=== PATIENT | female | born 1945 | race Two or more races ===

== ENCOUNTER 2016-09-19 10:00 | Inpatient (IN) | payer MEDICARE, BC ==
[~2016-09-19] VITALS: Ht 160 cm; Wt 67.7 kg
[2016-10-31] VITALS (21 sets, daily range): BP systolic 108–182; BP diastolic 55–91; PULSE 61–96; RESP 13–20; Ht 160 cm; Wt 67.7 kg
[2016-10-31] MEDS ORDERED: BUPIVACAINE LIPOSOME/PF 266 MG/20 ML VIAL INFIL SCH (05:00)
[2016-10-31] MEDS ORDERED: PREGABALIN 300 MG PO X1 PO ONE (05:00)
[2016-10-31] MEDS: LACTATED RINGER'S 1,000 ML IV SCH ×6 (05:00→23:00)
[2016-10-31] MEDS ORDERED: TRANEXAMIC ACID IV ONE (05:00)
[2016-10-31] MEDS ORDERED: CELECOXIB 400 MG PO X1 DOSE PO ONE (05:00)
[2016-10-31] MEDS: PAIN COCKTAIL-CEFUROXIME IRR SCH ×14 (05:00→09:26)
[2016-10-31] MEDS ORDERED: SOD CHLORIDE 0.9% IV ONE (05:00)
[2016-10-31] MEDS ORDERED: EXPAREL NOTE (BUPIVICAINE LIPOSOMAL) XX SCH (05:00)
[2016-10-31] MEDS ORDERED: traMADOL 50 MG TAB X 1 DOSE PO ONE (05:00)
[2016-10-31] MEDS ORDERED: CEFAZOLIN 2GM/50 ML (PMX) 50 ML X1 BEFORE INCISION IVPB ONE (05:00)
[2016-10-31] MEDS ORDERED: TRANEXAMIC ACID 670 MG in SOD CHLORIDE 0.9% 100 ML IVPB SCH (05:00)
[2016-10-31] MEDS ORDERED: oxyCODONE (CR) 10 MG TAB [oxyCONTIN] X1 DOSE PO ONE (05:00)
[2016-10-31] MEDS ORDERED: SODIUM CL BACTERIOSTATIC 30 ML INJ ONE (06:53)
[2016-10-31] MEDS ORDERED: VANCOMYCIN 1 GM INJ ONE (06:53)
[2016-10-31] MEDS ORDERED: POLYMYXIN B 500000 UNIT INJ ONE (06:53)
[2016-10-31] MEDS ORDERED: ETOMIDATE 20 MG INJ ONE (07:00)
[2016-10-31] MEDS ORDERED: PROPOFOL 100 ML ONE (07:12)
[2016-10-31] MEDS ORDERED: ROCURONIUM 50 MG INJ ONE (07:12)
[2016-10-31] MEDS ORDERED: LIDOCAINE 2% (SDV) 5 ML INJ ONE (07:12)
--- NOTE | 2016-10-31 07:14 | HPN ---
Date/Time of Note Date/Time of Note DATE: 10/31/16 TIME: 07:13 Interval H&P Admission Note Pt. seen H&P reviewed: No system changes No change from H&P by Dr. Pedro Brenner on 10/22/16 RANDAL HAMM MD Oct 31, 2016 07:14
[2016-10-31] MEDS ORDERED: SUCCINYLCHOLINE CHLORIDE 100 MG/5 ML SYG IV ONE (07:38)
[2016-10-31] MEDS ORDERED: DEXAMETHASONE 4 MG/ML 1 ML INJ ONE (07:38)
[2016-10-31] MEDS ORDERED: ONDANSETRON 4 MG INJ ONE (07:38)
[2016-10-31] MEDS ORDERED: FAMOTIDINE 20 MG INJ ONE (07:38)
[2016-10-31] MEDS ORDERED: BACITRACIN 50000 UNITS INJ IRR ONE (08:23)
[2016-10-31] MEDS ORDERED: PROCHLORPERAZINE 10 MG INJ IV PRN (09:00)
[2016-10-31] MEDS ORDERED: DIPHENHYDRAMINE 50 MG INJ IV PRN (09:00)
[2016-10-31] MEDS ORDERED: ONDANSETRON 4 MG INJ IV PRN ×2 (09:00→10:00)
[2016-10-31] MEDS ORDERED: HYDROmorphONE (0.2 MG/ML) 10ML SYG IV PRN ×2 (09:00)
[2016-10-31] MEDS ORDERED: FENTAnyl 50 MCG/ML VIAL IV PRN (09:00)
[2016-10-31] MEDS ORDERED: EPHEDrine SULFATE 50 MG/5 ML SYG ONE (09:40)
[2016-10-31] MEDS ORDERED: GLYCOPYRROLATE 1 MG INJ ONE (09:40)
[2016-10-31] MEDS ORDERED: NEOSTIGMINE 3 MG/3 ML SYRINGE ONE (09:40)
--- NOTE | 2016-10-31 09:46 | OPPN ---
Date/Time of Note Date/Time of Note DATE: 10/31/16 TIME: 09:44 Operative/Procedure Note Dictation # [id number] Pre-Operative Diagnosis Right Hip OA Post-Operative Diagnosis Same Procedure Right Anterior CHERELLE Surgeon: RANDAL HAMM MD Gate Supervisor: LUCITA ARCE PA-C Anesthesiologist: DIANNA GOODSON MD Findings Severe OA Blood Usage/Administration None Implants/Grafts Depuy CHERELLE Estimated blood loss: 250 - 300 ml's Drains Hemovac x 1 Specimens Femoral Head Complications: None Anesthesia type: spinal RANDAL HAMM MD Oct 31, 2016 09:45
[2016-10-31] MEDS ORDERED: MAGNESIUM HYDROXIDE 30ML CUP PO PRN (10:00)
[2016-10-31] MEDS ORDERED: NA PHOSPHATE/BIPHOS 133 ML ENEMA PR PRN (10:00)
[2016-10-31] MEDS ORDERED: NACL 0.9% 3 ML SYG IV SCH (10:00)
[2016-10-31] MEDS ORDERED: oxyCODONE 5 MG TAB PO PRN (10:00)
[2016-10-31] MEDS ORDERED: DIPHENHYDRAMINE 25 MG CAP PO PRN (10:00)
[2016-10-31] MEDS ORDERED: HYDROmorphONE 1 MG/ML SYG IV PRN (10:00)
[2016-10-31] MEDS ORDERED: BISACODYL 10 MG SUPP PR PRN (10:00)
--- NOTE | 2016-10-31 10:13 | RADRPT ---
PROCEDURE: Intraoperative imaging of the right hip with fluoroscopy. CLINICAL INDICATION: Right hip pain. Intraoperative. TECHNIQUE: 16 images of the right hip were obtained in the operating room with an image intensifie r. No radiologist was in attendance. 0.5 minutes of fluoroscopy time was used. COMPARISON: No prior study is available for comparison. FINDINGS: Images demonstrate placement of a total right hip arthroplasty. IMPRESSION: 1. Satisfactory intraoperative imaging of the right hip. RPTAT: QQ .Presley Garcia MD, MD Date Time Electronically viewed and signed by .Presley Garcia MD, on 10/31/2016 10:13 .R/
[2016-10-31 10:33] LABS: HEMATOCRIT 33.6 % (37.0-47.0); HEMOGLOBIN 11.1 g/dl (12.0-16.0)
--- NOTE | 2016-10-31 10:34 | PN ---
Date/Time of Note Date/Time of Note DATE: 10/31/16 TIME: 10:32 Assessment/Plan Lines/Catheters IV Catheter Type (from Nrsg): Peripheral IV Assessment/Plan Assessment/Plan Stable in PACU, s/p right anterior CHERELLE -cont abx -pain meds -Coumadin 2.5mg at 1700 today -SCDs for DVT prophylaxis -OOB with PT -monitor drain -check AM labs including protime -d/c gamble in AM XR of the right hip demostrates good alignment with no evidence of dislocation Subjective 24 Hr Interval Summary Stable in PACU. Moving all extremities. Denies pain. Exam/Review of Systems Vital Signs Vitals Vital Signs Date Time Temp Pulse Resp B/P Pulse Ox O2 Delivery O2 Flow Rate FiO2 10/31/16 10:05 98.8 10/31/16 09:58 96 19 165/73 99 Mask 8.0 Exam Free Text/Dictation Dressing dry Incision clean, dry, and intact without redness or drainage 5/5 Quadriceps, Tibialis Anterior, EHL, Gastroc, Soleus, Peroneals Normal sensation Palpable DT/PT, CR <2 sec No distal edema Results Result Diagram: 10/31/16 0600 LUCITA ARCE PA-C Oct 31, 2016 10:34
[2016-10-31] MEDS: CEFAZOLIN 2 GM/50 ML (PMX) 50 ML IVPB SCH ×2 (10:44→20:10)
[2016-10-31 10:47] LABS: ADD UMIC YES; URINE BILIRUBIN (Dip) NEGATIVE (NEGATIVE); URINE BLOOD (Dip) TRACE (NEGATIVE); URINE COLOR LT. YELLOW (YELLOW); URINE GLUCOSE (Dip) NEGATIVE (NEGATIVE); URINE KETONES (Dip) NEGATIVE (NEGATIVE); URINE LEUKOCYTE ESTERASE (Dip) NEGATIVE (NEGATIVE); URINE NITRITE (Dip) NEGATIVE (NEGATIVE); URINE TOTAL PROTEIN (Dip) NEGATIVE (NEGATIVE); URINE UROBILINOGEN (Dip) 0.2 E.U./dL (0.1-1.0)
[2016-10-31 10:58] LABS: CALCIUM 8.5 mg/dl (8.4-10.2); CREATININE 0.57 mg/dl (0.44-1.00)
[2016-10-31 10:59] LABS: BACTERIA,URINE FEW
--- NOTE | 2016-10-31 11:00 | RADRPT ---
PROCEDURE: XR Pelvis. CLINICAL INDICATION: Hip pain TECHNIQUE: Single AP view performed. COMPARISON: 08/26/2016 FINDINGS: There is a postoperative right total hip replacement. There is no evidence of loosening of the prost hesis. There is mild left hip osteoarthrosis. This is associated with joint space narrowing, subchondral sc lerosis, subchondral cyst formation and osteophytosis. There is normal osseous mineralization. No fractures or osseous lesions are identified. There are postoperative soft tissue changes. A drain is in place. There is a calcified fibroid in the pelvis. IMPRESSION: Postoperative right total hip replacement Postoperative soft tissue changes Mild left hip osteoarthrosis. RPTAT: HGDB .Gurwinder Erazo MD, Date Time Electronically viewed and signed by .Gurwinder Erazo MD, on 10/31/2016 11:00 .B/
[2016-10-31] MEDS: traMADol 50 MG TAB PO SCH ×2 (12:01→17:37)
[2016-10-31] MEDS: ACETAMINOPHEN 1000MG/100ML IV 100 ML IVPB SCH ×2 (12:03→17:37)
--- NOTE | 2016-10-31 12:58 | CONS ---
DATE OF ADMISSION: 10/31/2016 DATE OF CONSULTATION: 10/31/2016 POSTOPERATIVE MEDICAL CONSULTATIVE NOTE Thank you very much for allowing me to evaluate the above patient, a 71-year-old female who just und erwent total right hip replacement. HISTORICAL EVENTS: As you well know, this patient has had progressive disabling pain involving her right hip, and elected to proceed with your recommended surgery. In recovery, she is comfortable, l ethargic, easily aroused. PAST MEDICAL HISTORY: Includes: 1. Gonzales cyst. 2. Elevated cholesterol. 3. Chronic venous insufficiency. 4. Hypothyroidism. SOCIAL HISTORY: She does not smoke or drink. CURRENT MEDICATIONS: None. PHYSICAL EXAMINATION: GENERAL: [place] female in no acute distress. VITAL SIGNS: BP 128/80, pulse 70, respirations are 20, she was afebrile. EYES: Extraocular muscles were full. NOSE, MOUTH, AND THROAT: Normal. NECK: Supple. There was no jugular venous distention, thyroid enlargement or adenopathy. LUNGS: Clear. HEART: Rhythm regular, no murmur. No third or fourth sound. ABDOMEN: Nontender. Liver and spleen were not palpable. No masses or tenderness were noted. EXTREMITIES: No edema. Calves, no tenderness. NEUROLOGIC: No lateralizing motor weakness to gentle tactile stimuli. IMPRESSION: 1. Stable postoperative right hip replacement. 2. History of hypothyroidism. We will again review with the patient whether she is taking thyroid replacement. 3. We will evaluate her daily with signs and symptoms of thromboembolic disease. We will follow with you. Dictated By: LAUREN CEBALLOS/MARITA Conf#: [id number] DID#: [id number]
[2016-10-31] MEDS ORDERED: BACITRACIN 50000 UNITS INJ ONE (15:15)
--- NOTE | 2016-10-31 15:30 | OPR ---
DATE OF OPERATION: 10/31/2016 DATE: 10/31/2016 PREOPERATIVE DIAGNOSIS: Right hip osteoarthritis. POSTOPERATIVE DIAGNOSIS: Right hip osteoarthritis. OPERATION PERFORMED: Right anterior total hip arthroplasty. SURGEON: Randal Espinal MD PLASTIC MAKER: LEANDRO Grimm COMPONENTS USED: DePuy size 48 mm Gription [place] cup, 48/32 neutral AltrX polyethylene liner, size 6 standard ACTIS stem, 32+5 ceramic head. ANESTHESIA: Spinal plus general endotracheal intubation plus periarticular injection. ANESTHESIOLOGIST: Magui Green MD ESTIMATED BLOOD LOSS: 300 mL. INTRAVENOUS FLUIDS: 2200 mL crystalloid. SPECIMENS: Femoral head. DRAINS: Hemovac x1. COMPLICATIONS: None. DISPOSITION: The patient tolerated the procedure well and was taken to the recovery room in stable condition. INDICATIONS: The patient is a 71-year-old woman who has had progressive worsening pain in the right hip with radiographic evidence of severe osteoarthritis. She has failed nonsurgical means of treatment to control her pain including activity modifications, pain medications and ambulatory assist devices. Despite these measures, she has had worsening pain and I felt she would benefit from a total hip arthroplasty through an anterior approach. The risks, benefits, and alternatives of the procedure were explained in detail to the patient. I explained the risks of the surgery to include, but not be limited to: bleeding and possible need for blood transfusion; infection; pain; stiffness; neurovascular injury with possible numbness, weakness, and/or paralysis anywhere from the hip down to the toes; fracture; instability; dislocation; leg length inequality; wear and/or loosening of the prosthesis and possible need for future revision; blood clots; pulmonary embolism; and anesthetic complications such as heart attack, stroke, GI bleed, pneumonia, and/ or . Ample time was allowed for the patient to ask questions, all of which were addressed and answered. The patient understood the risks involved and wished to proceed. Informed consent was signed prior to the procedure. PROCEDURE: The patient's right hip was initialed with a marking pen in the preoperative area to identify the correct operative site. The patient was brought to the operating room and transferred [facility] the [facility] to the [facility] where a spinal anesthetic was administered. The patient was then anesthetized and intubated. A Sadler catheter was placed. Both feet were placed into well-padded boots, which were then placed into the leg holders of the traction booms. A timeout was performed to confirm that the right side was the correct operative site. The patient was given 2 g of intravenous Ancef within one hour prior to the procedure. The operative hip was prepped and draped in the usual sterile fashion. A 10 cm oblique incision was made over the anterior aspect of the hip and carried down through subcutaneous tissue and fat with sharp dissection. The tensor fascia kin was incised along the length of the wound. The tensor fascia muscle was retracted laterally and the sartorius medially. The anterior circumflex vessels were identified and tied off with 2-0 silk suture and coagulated with the Tissue Link behavioral interventionist. The rectus femoris was elevated off the anterior capsule and an anterior capsulectomy performed. A femoral neck osteotomy was made and the head removed from the acetabulum. The acetabulum was denuded of cartilage circumferentially, as was the femoral head. Retractors were placed around the acetabulum. The remnants of the labrum and ligamentum teres were excised. I reamed the acetabulum to the medial wall and then went into an anatomic position and increased the reamer size in 2 mm increments until I got a good bite and was down to bleeding subchondral bone. The [place] cup was opened and impacted into the acetabulum and sat flush circumferentially, getting a good bite. C-arm imaging showed it had about 40 to 45 degrees of abduction and 20 degrees of anteversion. The real liner was opened and impacted into the acetabulum and sat flush circumferentially. Attention was turned towards the femur. The operative leg was carefully lowered to the floor with the leg adducted. The foot was then externally rotated to approximately 110 degrees. A posteromedial release was performed to optimize exposure. The femoral hook was placed underneath the proximal femur and the hydraulic lift was then used to elevate the femur up out of the wound. The cookie cutter osteotome was used to remove the remaining overhanging greater trochanter. The femur was then broached, going up in one size increments until it sat flush with the neck cut and a stable fit was achieved. The trial neck and head were assembled and reduced into the acetabulum. Fluoroscopic imaging showed the components to be in good position and the leg lengths and offsets to be equal. At this point, the trial was dislocated and the trial broach removed. The canal was irrigated and dried. The real stem was opened and impacted into the femur. The trunnion was irrigated and dried, and the real femoral head was impacted onto the trunnion, and reduced into the acetabulum. The soft tissues were infiltrated with a mixture of 150 mg of 0.5% Bupivacaine, 8 mg of Duramorph, 300 mcg of epinephrine, 30 mg of Toradol, 100 mcg of clonidine, 750 mg of cefuroxime and 86 mL of normal saline, followed by an injection of 266 mg of liposomal Bupivacaine. At this point the hip was irrigated with a mixture of Betadine/saline and then antibiotic saline with pulsatile lavage. A Hemovac drain was placed in the deep portion of the wound and brought out the anterolateral thigh. There was good hemostasis. The tensor fascia kin was repaired with a running #1 Vicryl. The deep fat layer was irrigated and closed with 2-0 Stratafix and the subcutaneous layer closed with 3 -0 Stratafix and the skin was sealed with Prineo Dermabond. The drain was secured with 3-0 nylon. The sponge and needle counts were correct at the end of the case. The wound was covered with an occlusive dressing. The patient was awakened, extubated, and taken to the recovery room in stable condition. Dictated By: RANDAL SANFORD/MARITA Conf#: [id number] DID#: [id number] MTDD
[2016-10-31] MEDS ORDERED: WARFARIN 1 MG TAB PO ONE (17:00)
[2016-10-31] MEDS: PANTOPRAZOLE (EC) 40 MG TAB PO SCH (17:37)
[2016-10-31] MEDS: PREGABALIN 25 MG CAP PO SCH (21:00)
[2016-10-31] MEDS: DOCUSATE SODIUM 100 MG CAP PO SCH (21:00)
[2016-11-01] MEDS: LACTATED RINGER'S 1,000 ML IV SCH ×5 (01:00→21:00)
[2016-11-01 05:09] LABS: POTASSIUM 4.4 mmol/L (3.5-5.1)
[2016-11-01 05:10] LABS: INR 1.11; PROTIME 14.3 Sec (12.2-14.2); PT RATIO 1.1
[2016-11-01 05:12] LABS: CALCIUM 8.6 mg/dl (8.4-10.2); CREATININE 0.55 mg/dl (0.44-1.00)
[2016-11-01 05:13] LABS: HEMATOCRIT 27.8 % (37.0-47.0); HEMOGLOBIN 9.3 g/dl (12.0-16.0)
[2016-11-01] MEDS: traMADol 50 MG TAB PO SCH ×4 (06:00→17:39)
[2016-11-01] MEDS: ACETAMINOPHEN 1000MG/100ML IV 100 ML IVPB SCH ×2 (06:00)
[2016-11-01] MEDS: CEFAZOLIN 2 GM/50 ML (PMX) 50 ML IVPB SCH (06:21)
[2016-11-01] MEDS: PANTOPRAZOLE (EC) 40 MG TAB PO SCH ×2 (06:21→17:40)
--- NOTE | 2016-11-01 08:00 | PDOCDIS ---
Discharge Instructions DIAGNOSIS Discharge Diagnosis: s/p right anterior CHERELLE CONDITION Patient Condition: Good HOME CARE INSTRUCTIONS: Diet Instructions: RegularSpecial Diet: regular ACTIVITY: Activity Restrictions: Slowly Increase Activity Rest between Activity Avoid heavy lifting Do not operate Machinery Do not operate Power Tool Avoid Heavy Housework Keep Limb Elevated Bathing Restrictions: Shower FOLLOW UP/APPOINTMENTS Appointments follow up in the office with Dr. Espinal on 11/11/16 OTHER ORDERS: Other Orders: S/P Anterior CHERELLE Physical Therapy: Three times per week at home x 2 weeks Daily in Rehab/SNF (if indicated) WB STATUS: WBAT Strengthening exercises for both upper and un-operated lower extremities. 1. Gait training with front wheeled walker 2. Wide base gait, no pivot turns. 3. Abductor strengthening. 4. Quadriceps and hamstring strengthening. 5. May switch to cane in contra lateral hand 6 weeks after surgery. 6. Physical Therapy can open case if nursing is not available. 7. Ice Packs while at rest to surgical wound for 20 minutes, 3 times/day. 8. Patient requires mobile SCDs to reduce risk of developing DVT following CHERELLE. Patient will use the mobile SCDs for 30 days postoperatively. Hip Precautions: No posterior hip precautions. Bathing assistance by home health aide twice weekly if Medicare patient. Occupational Therapy: Evaluation for assistive devices and ADL training. Wound Care: Keep incision dry & covered with Tegaderm until first visit with Dr. Espinal Anticoagulation Orders: Enteric Coated Aspirin 325 mg po bid x 6 weeks from date of surgery Follow-up:Call for an appointment with Dr. Espinal in 1 week after discharged from hospital at DME Orders: RACHEL, 3-in-1 Commode, Mobile SCDs LUCITA ARCE PA-C Nov 01, 2016 08:00
[2016-11-01] MEDS ORDERED: WARF1TAB47 PO (08:08)
[2016-11-01] MEDS ORDERED: WARF2TAB PO (08:08)
--- NOTE | 2016-11-01 08:32 | CONS ---
Date/Time of Note Date/Time of Note DATE: 11/01/16 TIME: 08:31 Assessment/Plan Assessment/Plan Additional Assessment/Plan 1. Stable postoperative right hip replacement. 2. History of hypothyroidism, replacement ordered Consultation Date/Type/Reason Admit Date/Time Oct 31, 2016 at 05:55 Initial Consult Date Detailed Summary Respiratory: No shortness of breath Cardiovascular: No chest pain, No lightheadedness Gastrointestinal: no complaints Genitourinary: no complaints Musculoskeletal: bone/joint pain (mild right hip pain) Exam/Review of Systems Vital Signs Vitals Vital Signs Date Time Temp Pulse Resp B/P Pulse Ox O2 Delivery O2 Flow Rate FiO2 10/31/16 23:57 98.4 67 20 109/55 98 10/31/16 14:15 Nasal Cannula 1.0 Intake and Output 10/31/16 10/31/16 11/01/16 15:00 23:00 07:00 Intake Total 2400 ml 865 ml 1125 ml Output Total 470 ml 670 ml 1000 ml Balance 1930 ml 195 ml 125 ml Exam Neck: No jvd Respiratory: clear to auscultation Cardiovascular: regular rate and rhythm Gastrointestinal: soft Extremities: No edema (and no calf tend bilat) Results Result Diagram: 11/01/16 0420 11/01/16 0420 Results 24 hrs Laboratory Tests Test 10/31/16 09:57 10/31/16 10:10 11/01/16 04:20 Urine Bacteria FEW Urine Bilirubin NEGATIVE Urine Clarity CLEAR Urine Color LT. YELLOW Urine Epithelial Cells MODERATE Urine Glucose NEGATIVE Urine Hemoglobin TRACE Urine Ketones NEGATIVE Urine Leukocyte Esterase NEGATIVE Urine Microscopic RBC 2-5 Urine Microscopic WBC 2-5 Urine Nitrite NEGATIVE Urine Specific [place] 1.010 Urine Total Protein NEGATIVE Urine Urobilinogen 0.2 E.U./dL Urine pH 6.0 Anion Gap 14 12 Blood Urea Nitrogen 16 12 Calcium Level 8.5 8.6 Carbon Dioxide Level 27 30 Chloride Level 106 101 Creatinine 0.57 0.55 Glucose Level 169 116 # Hematocrit 33.6 L 27.8 L Hemoglobin 11.1 L 9.3 L Potassium Level 4.0 4.4 Sodium Level 143 139 INR International Normalized Ratio 1.11 Prothrombin Time 14.3 H Prothrombin Time Ratio 1.1 Medications Medications Current Medications Lactated Ringer's (Lr) 1,000 ml @ 100 mls/hr Q10H IV Last administered on 23:00; Admin Dose 100 MLS/HR; Start 10/31/16 at 05:00 Miscellaneous Information 1 ea 1 ea NOTE XX ; Start 10/31/16 at 05:00; Stop at 04:59 Lactated Ringer's 1,000 ml @ 125 mls/hr Q8H IV Last administered on 10/31/16 22:56; Admin Dose 125 MLS/HR; Start 10/31/16 at 09:52 Acetaminophen (Ofirmev 1000mg/ 100ml Iv) 100 ml @ 400 mls/hr Q6 IVPB Last administered on 10/31/16 12:03; Admin Dose 400 MLS/HR; Start 10/31/16 at 12:00; Stop 11/01/16 at 11:59 Tramadol HCl (Ultram) 50 mg Q6 PO Last administered on 10/31/16 12:01; Admin Dose 50 MG; Start 10/31/16 at 12:00; Stop 11/03/16 at 11:59 Oxycodone HCl (Roxicodone) 5 mg Q4H PRN PO PAIN LEVEL 1-3; Start 10/31/16 at 10: 00 Oxycodone HCl (Roxicodone) 10 mg Q4H PRN PO PAIN LEVEL 4-7; Start 10/31/16 at 10 :00 Hydromorphone HCl (Dilaudid) 1 mg Q3H PRN IV PAIN LEVEL 8-10; Start 10/31/16 at 10:00 Ondansetron HCl (Zofran Inj) 4 mg Q6H PRN IV NAUSEA AND/OR VOMITING; Start 10/31 at 10:00 Bisacodyl (Dulcolax Supp) 10 mg Q12H PRN [place] CONSTIPATION; Start 10/31/16 at 10: 00 Magnesium Hydroxide (Milk Of Mag) 30 ml BID PRN PO CONSTIPATION; Start 10/31/16 at 10:00 Sodium Biphosphate/ Sodium Phosphate (Fleet Enema) 133 ml DAILY PRN [place] CONSTIPATION; Start 10/31/16 at 10:00 Docusate Sodium (Colace) 100 mg BID PO ; Start 10/31/16 at 21:00 Diphenhydramine HCl (Benadryl) 25 mg Q6H PRN PO PRURITUS; Start 10/31/16 at 10: 00 Pregabalin (Lyrica) 50 mg BID PO ; Start 10/31/16 at 21:00 Pantoprazole (Protonix Tab) 40 mg BID@ PO Last administered on 11/01/16t 06 :21; Admin Dose 40 MG; Start 10/31/16 at 18:00 LAUREN RIVERS MD Nov 01, 2016 08:32
[2016-11-01] MEDS: PREGABALIN 25 MG CAP PO SCH ×2 (08:52→21:00)
[2016-11-01] MEDS: DOCUSATE SODIUM 100 MG CAP PO SCH ×2 (08:53→21:00)
[2016-11-01] MEDS ORDERED: ASPIRIN (EC) 325 MG TAB PO SCH (09:00)
[2016-11-01 09:08] VITALS: BP 121/55; RESP 16
--- NOTE | 2016-11-01 09:09 | PN ---
Date/Time of Note Date/Time of Note DATE: 11/01/16 TIME: 09:08 Assessment/Plan Lines/Catheters IV Catheter Type (from Nrsg): Peripheral IV Sadler in Place (from Nrsg): Yes Assessment/Plan Assessment/Plan Stable POD #1 s/p right anterior CHERELLE -pain meds -Coumadin 2.5mg today at 1700 -SCDs -OOB with PT -drain removed -dressing changed -check AM labs -encourage incentive spirometry -d/c planning. Patient will likely go home Subjective 24 Hr Interval Summary Doing well. No acute overnight events. Denies pain. VSS, afebrile. Did not start PT. Exam/Review of Systems Vital Signs Vitals Vital Signs Date Time Temp Pulse Resp B/P Pulse Ox O2 Delivery O2 Flow Rate FiO2 10/31/16 23:57 98.4 67 20 109/55 98 10/31/16 14:15 Nasal Cannula 1.0 Intake and Output 10/31/16 10/31/16 11/01/16 15:00 23:00 07:00 Intake Total 2400 ml 865 ml 1125 ml Output Total 470 ml 670 ml 1000 ml Balance 1930 ml 195 ml 125 ml Exam Free Text/Dictation Hemovac: 140cc Dressing dry Incision clean, dry, and intact without redness or drainage 5/5 Quadriceps, Tibialis Anterior, EHL, Gastroc, Soleus, Peroneals Normal sensation Palpable DT/PT, CR <2 sec No distal edema Results Result Diagram: 11/01/1641911/01/16419 LUCITA ARCE PA-C Nov 01, 2016 09:09
[2016-11-01 16:34] LABS: ADD UMIC NO; URINE BILIRUBIN (Dip) NEGATIVE (NEGATIVE); URINE BLOOD (Dip) NEGATIVE (NEGATIVE); URINE COLOR LT. YELLOW (YELLOW); URINE GLUCOSE (Dip) NEGATIVE (NEGATIVE); URINE KETONES (Dip) NEGATIVE (NEGATIVE); URINE LEUKOCYTE ESTERASE (Dip) NEGATIVE (NEGATIVE); URINE NITRITE (Dip) NEGATIVE (NEGATIVE); URINE TOTAL PROTEIN (Dip) NEGATIVE (NEGATIVE); URINE UROBILINOGEN (Dip) 0.2 E.U./dL (0.1-1.0)
[2016-11-01] MEDS ORDERED: WARFARIN 2.5 MG TAB PO SCH (17:00)
[2016-11-01] MEDS: oxyCODONE 5 MG TAB PO PRN (19:50)
[2016-11-01 20:40] VITALS: BP 139/73; PULSE 84; RESP 17
[2016-11-02] MEDS: LACTATED RINGER'S 1,000 ML IV SCH ×4 (01:52→16:53)
[2016-11-02] MEDS: PANTOPRAZOLE (EC) 40 MG TAB PO SCH ×3 (06:00→16:53)
[2016-11-02] MEDS: traMADol 50 MG TAB PO SCH ×4 (06:00→18:00)
[2016-11-02 06:13] LABS: INR 1.22; PROTIME 15.5 Sec (12.2-14.2); PT RATIO 1.2
[2016-11-02 06:28] LABS: POTASSIUM 3.6 mmol/L (3.5-5.1)
[2016-11-02 06:30] LABS: CREATININE 0.54 mg/dl (0.44-1.00)
[2016-11-02] MEDS: oxyCODONE 5 MG TAB PO PRN ×3 (06:30→18:08)
[2016-11-02 06:31] LABS: CALCIUM 8.3 mg/dl (8.4-10.2)
[2016-11-02 06:41] LABS: HEMATOCRIT 30.7 % (37.0-47.0); HEMOGLOBIN 9.9 g/dl (12.0-16.0)
[2016-11-02 07:35] VITALS: BP 149/74; RESP 16
[2016-11-02] MEDS: PREGABALIN 25 MG CAP PO SCH ×2 (09:00→21:00)
[2016-11-02] MEDS: DOCUSATE SODIUM 100 MG CAP PO SCH ×2 (10:13→21:00)
--- NOTE | 2016-11-02 11:30 | PN ---
Date/Time of Note Date/Time of Note DATE: 11/02/16 TIME: 11:29 Assessment/Plan Lines/Catheters IV Catheter Type (from Nrsg): Peripheral IV Sadler in Place (from Nrsg): Yes Assessment/Plan Assessment/Plan POD # 2. Stable. -Increase activity OOB with PT -Pain meds -Coumadin -SCDS -Plan for d/c to home tomorrow Subjective 24 Hr Interval Summary Resting comfortably. Wants to go home tomorrow. Exam/Review of Systems Vital Signs Vitals Vital Signs Date Time Temp Pulse Resp B/P Pulse Ox O2 Delivery O2 Flow Rate FiO2 11/02/16 07:35 98.1 82 16 149/74 91 11/01/16 20:40 Nasal Cannula 2.0 Intake and Output 11/01/16 11/01/16 11/02/16 15:00 23:00 07:00 Intake Total 1140 ml 300 ml Output Total 600 ml Balance 1140 ml -300 ml Exam Free Text/Dictation Dressing dry Incision clean, dry, and intact without redness or drainage Thigh soft 5/5 Quadriceps, Tibialis Anterior, EHL, Gastroc Soleus, Peroneals Normal sensation Palpable DP/PT, CR < 2 Sec No distal edema INR: 1.22 Results Result Diagram: 11/02/165 11/02/16 0435 RANDAL HAMM MD Nov 02, 2016 11:30
[2016-11-02] MEDS ORDERED: WARFARIN 3 MG TAB PO ONE (17:00)
[2016-11-02 19:53] VITALS: BP 156/67; RESP 22
--- NOTE | 2016-11-02 21:07 | CONS ---
Date/Time of Note Date/Time of Note DATE: 11/02/16 TIME: 21:06 Assessment/Plan Assessment/Plan Additional Assessment/Plan 1. Stable postoperative right hip replacement. -anticoagulation per ortho, continue rehab, pain controlled 2. History of hypothyroidism, replacement ordered -stablized continue to monitor Consultation Date/Type/Reason Admit Date/Time Oct 31, 2016 at 05:55 Initial Consult Date Type of Consultation: Internal Medicine 24 HR Interval Summary Constitutional: improved, no complaints Exam/Review of Systems Vital Signs Vitals Vital Signs Date Time Temp Pulse Resp B/P Pulse Ox O2 Delivery O2 Flow Rate FiO2 11/02/16 19:53 98.4 100 22 156/67 97 11/01/16 20:40 Nasal Cannula 2.0 Intake and Output 11/01/16 11/01/16 11/02/16 15:00 23:00 07:00 Intake Total 1140 ml 300 ml Output Total 1000 ml Balance 1140 ml -700 ml Exam Constitutional: alert, oriented Psych: no complaints Head: normocephalic ENMT: nl external ears & nose Neck: non-tender, supple Respiratory: clear to auscultation Cardiovascular: nl pulses, regular rate and rhythm Extremities: other Lymph: No enlarged Additional Comments R knee c/d/i no drainage Results Result Diagram: 11/02/16 0435 11/02/16 0435 Results 24 hrs Laboratory Tests Test 11/02/16 04:35 11/02/16 04:55 Anion Gap 12 Blood Urea Nitrogen 11 Calcium Level 8.3 L Carbon Dioxide Level 32 H Chloride Level 99 Creatinine 0.54 Glucose Level 105 Hematocrit 30.7 L Hemoglobin 9.9 L Potassium Level 3.6 Sodium Level 139 INR International Normalized Ratio 1.22 Prothrombin Time 15.5 H Prothrombin Time Ratio 1.2 Medications Medications Current Medications Miscellaneous Information 1 ea NOTE XX ; Start 10/31/16 at 05:00; Stop 11/04/16 at 04:59 Tramadol HCl (Ultram) 50 mg Q6 PO Last administered on 11/01/16 17:39; Admin Dose 50 MG; Start 10/31/16 at 12:00; Stop 11/03/16 at 11:59 Oxycodone HCl (Roxicodone) 5 mg Q4H PRN PO PAIN LEVEL 1-3 Last administered on 11/02/16 18:08; Admin Dose 5 MG; Start 10/31/16 at 10:00 Oxycodone HCl (Roxicodone) 10 mg Q4H PRN PO PAIN LEVEL 4-7 Last administered on 11/01/16 09:31; Admin Dose 10 MG; Start 10/31/16 at 10:00 Hydromorphone HCl (Dilaudid) 1 mg Q3H PRN IV PAIN LEVEL 8-10; Start 10/31/16 at 10:00 Ondansetron HCl (Zofran Inj) 4 mg Q6H PRN IV NAUSEA AND/OR VOMITING; Start 10/31 at 10:00 Bisacodyl (Dulcolax Supp) 10 mg Q12H PRN [place] CONSTIPATION; Start 10/31/16 at 10: 00 Magnesium Hydroxide (Milk Of Mag) 30 ml BID PRN PO CONSTIPATION; Start 10/31/16 at 10:00 Sodium Biphosphate/ Sodium Phosphate (Fleet Enema) 133 ml DAILY PRN [place] CONSTIPATION; Start 10/31/16 at 10:00 Docusate Sodium (Colace) 100 mg BID PO Last administered on 11/02/16 10:13; Admin Dose 100 MG; Start 10/31/16 at 21:00 Diphenhydramine HCl (Benadryl) 25 mg Q6H PRN PO PRURITUS; Start 10/31/16 at 10: 00 Pregabalin (Lyrica) 50 mg BID PO ; Start 10/31/16 at 21:00 Pantoprazole (Protonix Tab) 40 mg BID@,18 PO Last administered on 11/01/16 06 :21; Admin Dose 40 MG; Start 10/31/16 at 18:00 SHELLY CASTANEDA MD Nov 02, 2016 21:07
[2016-11-03] MEDS: oxyCODONE 5 MG TAB PO PRN ×2 (00:49→12:43)
[2016-11-03 06:00] LABS: INR 1.28; PROTIME 16.1 Sec (12.2-14.2); PT RATIO 1.3
[2016-11-03] MEDS: PANTOPRAZOLE (EC) 40 MG TAB PO SCH (06:00)
[2016-11-03] MEDS: traMADol 50 MG TAB PO SCH ×3 (06:00→09:59)
[2016-11-03 06:04] LABS: HEMATOCRIT 32.3 % (37.0-47.0); HEMOGLOBIN 10.8 g/dl (12.0-16.0)
[2016-11-03 06:18] LABS: CREATININE 0.58 mg/dl (0.44-1.00)
[2016-11-03 06:19] LABS: CALCIUM 8.7 mg/dl (8.4-10.2)
[2016-11-03 08:09] VITALS: BP 163/74; RESP 16
[2016-11-03] MEDS: PREGABALIN 25 MG CAP PO SCH (08:29)
[2016-11-03] MEDS: DOCUSATE SODIUM 100 MG CAP PO SCH (08:29)
--- NOTE | 2016-11-03 09:01 | PN ---
Date/Time of Note Date/Time of Note DATE: 11/03/16 TIME: 08:59 Assessment/Plan Lines/Catheters IV Catheter Type (from Nrsg): Saline Lock Sadler in Place (from Nrsg): Yes Assessment/Plan Assessment/Plan POD # 3. Stable. -D/C to home -Pain meds -Home PT -Home FWW and commode -Coumadin 4 mg po x 1 today and then re-check INR tomorrow at home -F/u with me on 11/11/16 Subjective 24 Hr Interval Summary Comfortable. Ready to go home. Exam/Review of Systems Vital Signs Vitals Vital Signs Date Time Temp Pulse Resp B/P Pulse Ox O2 Delivery O2 Flow Rate FiO2 11/03/16 08:09 98.3 93 16 163/74 95 11/01/16 20:40 Nasal Cannula 2.0 Intake and Output 11/02/16 11/02/16 11/03/16 15:00 23:00 07:00 Intake Total 0 ml 1240 ml 200 ml Output Total 1350 ml 500 ml Balance 0 ml -110 ml -300 ml Exam Free Text/Dictation Dressing dry Incision clean, dry, and intact without redness or drainage Thigh soft 5/5 Quadriceps, Tibialis Anterior, EHL, Gastroc Soleus, Peroneals Normal sensation Palpable DP/PT, CR < 2 Sec No distal edema INR: 1.28 Results Result Diagram: 11/03/169 11/03/16 0439 RANDAL HAMM MD Nov 03, 2016 09:01
--- NOTE | 2016-11-03 09:43 | DS ---
DATE OF ADMISSION: 10/31/2016 DATE OF DISCHARGE: 11/03/2016 ADMITTING DIAGNOSIS: Right hip osteoarthritis. FINAL DIAGNOSIS: Status post right anterior total hip arthroplasty. HOSPITAL COURSE: The patient was admitted and taken to the operating room where she underwent a rig ht anterior total hip arthroplasty. There were no complications. She was taken to the [facility] in stable condition. She was given routine perioperative intravenous antibiotics. Pain was contr olled with oral pain medications. She was started on Coumadin for DVT prophylaxis. She was seen by physical therapy and educated on gait training and the use of a front-wheel walker for ambulatory s upport. The drain was removed on postoperative day 1 and the incision inspected and noted to be alok an, dry, and intact with no redness or drainage daily thereafter. The patient did well with physica l therapy, ambulating independently. She remained afebrile, hemodynamically stable, and neurovascul mai intact. By postoperative day #3, she was doing well and ready to be discharged to home. DISCHARGE CONDITION: Good. DISPOSITION: Home. DISCHARGE MEDICATIONS: She will continue with adjusted dose Coumadin for a total of [address] of surgery for target INR of 2.0. She will be given 4 mg Coumadin this afternoon, and then [facility] INR will be drawn and we will adjust the dose thereafter. She will continue with tramadol for mild pain and [place] for moderate pain. For the remainder of the medications, please refer to e medication reconciliation form. DISCHARGE INSTRUCTIONS: She should keep the incision dry. She will continue to ambulate with a wal ker for ambulatory support an remain weightbearing as tolerated on the right lower extremity. She w ill follow up with me in the office in 1 week on 11/11/2016. Dictated By: RANDAL SANFORD/NTS Conf#: [id number] DID#: [id number]
[2016-11-03] MEDS ORDERED: WARFARIN 2 MG TAB PO ONE (12:00)
--- NOTE | 2016-11-03 17:21 | CONS ---
Date/Time of Note Date/Time of Note DATE: 11/03/16 TIME: 17:19 Assessment/Plan Assessment/Plan Additional Assessment/Plan 1. Stable postoperative right hip replacement. -anticoagulation per ortho, continue rehab, pain controlled -stable for discharge, discharge orders given over the phone -home health, 3-1 comode, FWW at home all ordered 2. History of hypothyroidism, replacement ordered -stablized continue to monitor For Dr. Tru Dailey MD Internal Medicine Consultation Date/Type/Reason Admit Date/Time Oct 31, 2016 at 05:55 Type of Consultation: Internal Medicine 24 HR Interval Summary Free Text/Dictation no active issues stabilized for discharge Exam/Review of Systems Vital Signs Vitals Vital Signs Date Time Temp Pulse Resp B/P Pulse Ox O2 Delivery O2 Flow Rate FiO2 11/03/16 08:09 98.3 93 16 163/74 95 11/01/16 20:40 Nasal Cannula 2.0 Intake and Output 11/02/16 11/02/16 11/03/16 15:00 23:00 07:00 Intake Total 0 ml 1240 ml 200 ml Output Total 1350 ml 500 ml Balance 0 ml -110 ml -300 ml Exam Constitutional: alert, oriented Head: normocephalic Eyes: nl conjunctiva Neck: non-tender, supple Respiratory: clear to auscultation Cardiovascular: regular rate and rhythm Gastrointestinal: soft Neurological: LEARNING AND DEVELOPMENT INTERN II-XII intact Results Result Diagram: 11/03/16 0439 11/03/16 0439 Results 24 hrs Laboratory Tests Test 11/03/16 04:09 11/03/16 04:39 INR International Normalized Ratio 1.28 Prothrombin Time 16.1 H Prothrombin Time Ratio 1.3 Anion Gap 12 Blood Urea Nitrogen 9 Calcium Level 8.7 Carbon Dioxide Level 34 H Chloride Level 97 Creatinine 0.58 Glucose Level 123 Hematocrit 32.3 L Hemoglobin 10.8 L Potassium Level 4.0 Sodium Level 139 SHELLY DAILEY MD Nov 03, 2016 17:21
== END 2016-11-03 12:55 | disposition home health service (06) | DRG 470 ==
LOC: REC 10-31 05:55 → MS1 10-31 11:17
PROVIDERS: ADMIT Orthopaedic Surgery; ATTEND Orthopaedic Surgery
PROC: 0SR904A Replacement of Right Hip Joint with Ceramic on Polyethylene Synthetic Substitute, Uncemented, Open Approach (ICD-10-PCS; principal; 2016-10-31 07:00)
DX: M16.11 Unilateral primary osteoarthritis, right hip (principal); E03.9 Hypothyroidism, unspecified; E78.5 Hyperlipidemia, unspecified; I87.2 Venous insufficiency (chronic) (peripheral); M71.20 Synovial cyst of popliteal space [Baker], unspecified knee
CPT/HCPCS: 72170; 73530; 80048; 81001; 81003; 84132; 85014; 85018; 85610; 86850; 86900; 86901; 86920; 87081; 87086; 88304; 88311; 97110; 97116; 97162; 97167; 97530; Z7610; C1776; C9290; J0131; J0171; J0330; J0690; J0697; J0735; J1100; J1885; J2274; J2405; J2710; J3370; J7120

== ENCOUNTER → 2016-10-28 | Outpatient (CLI) | payer MEDICARE, BC ==
[~2016-10-28] MED LIST: WARF1TAB47 PO; WARF2TAB PO
== END | disposition home or self-care (01) ==
LOC: HKI 09:56
PROVIDERS: ATTEND Orthopaedic Surgery
DX: Z01.818 Encounter for other preprocedural examination (principal); M16.11 Unilateral primary osteoarthritis, right hip; Z86.718 Personal history of other venous thrombosis and embolism
CPT/HCPCS: 86850; 86900; 86901; 87081; G0463

== ENCOUNTER → 2016-11-11 | Outpatient (CLI) | payer MEDICARE, BC ==
--- NOTE | 2016-11-12 04:38 | HKNOTE ---
DATE OF SERVICE: 11/11/2016 INTERVAL HISTORY: The patient presents today for her first postoperative evaluation. She is now 10 days status post right anterior total hip arthroplasty. She is doing well overall. She is having only mild pain. She denies any fevers or chills. She is ambulatory using a walker. She has been compliant with her Coumadin. She presents today for her first postoperative evaluation. PHYSICAL EXAMINATION: Today, she is alert and oriented x4, in no acute distress. She is walking with a front-wheel walker. Examination of the incision demonstrates it to be clean, dry and intact. There is some mild soft tissue swelling. Homans sign is negative. Compartments are soft. There is no erythema or warmth. She is neurovascularly intact distally. IMAGING: X-rays of the right hip are obtained and reviewed by me today show good anatomic location with no fracture or dislocation identified. ASSESSMENT: Ten days status post right anterior total hip arthroplasty. DISCUSSION: The patient is to continue taking Coumadin that will be dosed after her INR draws daily. We will instruct the patient on how to continue her medication and we will switch her off Coumadin next week, most likely. She does have some postoperative swelling, so we will obtain a venous duplex to rule out DVT, although likelihood is low at this point. She can continue taking the pain medication as instructed. She is to continue physical therapy with home health. We will see her back in 4 weeks for reevaluation. Dictated By: LUCITA REEVES for RANDAL SILVA/MARITA Conf#: [id number] DID#: [id number] [id number]
--- NOTE | 2016-11-12 08:46 | RADRPT ---
PROCEDURE: XR pelvis/right hip. CLINICAL INDICATION: Hip pain TECHNIQUE: AP pelvis/AP and lateral right hip views performed. COMPARISON: No prior studies are available for comparison. FINDINGS: There is a right total hip replacement. There is no evidence of loosening of the prosthesis. There is moderate left hip osteoarthrosis. This is associated with joint space narrowing, subchondra l sclerosis, subchondral cyst formation and osteophytosis. There is normal osseous mineralization. No fractures or osseous lesions are identified. The soft tissues are unremarkable. There is a calc ified fibroid in the pelvis. IMPRESSION: Right total hip replacement. Moderate left hip osteoarthrosis. RPTAT: HGDB .Gurwinder Erazo MD, Date Time Electronically viewed and signed by .Gurwinder Erazo MD, on 11/12/2016 08:46 .B/
== END | disposition home or self-care (01) ==
LOC: HKI 10:14
PROVIDERS: ATTEND Orthopaedic Surgery
DX: Z47.1 Aftercare following joint replacement surgery (principal); Z96.641 Presence of right artificial hip joint; Z79.01 Long term (current) use of anticoagulants
CPT/HCPCS: 73502; G0463

== ENCOUNTER → 2016-12-09 | Outpatient (CLI) | payer MEDICARE, BC ==
--- NOTE | 2016-12-09 17:24 | RADRPT ---
PROCEDURE: XR Right hip and pelvis. CLINICAL INDICATION: Right hip pain. Pelvic pain. Postop. TECHNIQUE: Two views. Frontal pelvis and frontal right hip. COMPARISON: 11/11/2016. FINDINGS: There is no fracture or dislocation. There is a calcified fibroid in the pelvis. There is a right hip total arthroplasty which appears satisfactory. There are moderate degenerative changes of the left hip with joint space narrowing and osteophytes. There is no lytic or blastic lesion. There are degenerative changes of the lower lumbar spine. IMPRESSION: 1. Satisfactory postoperative appearance of the right hip. 2. Moderate degenerative changes of the left hip. 3. Calcified fibroid in the pelvis. 4. Degenerative changes of the lower lumbar spine. RPTAT: QQ .Presley Garcia MD, Date Time Electronically viewed and signed by .Presley Garcia MD, on 12/09/2016 17:23 .R/
== END | disposition home or self-care (01) ==
LOC: HKI 10:23
PROVIDERS: ATTEND Orthopaedic Surgery
DX: Z47.1 Aftercare following joint replacement surgery (principal); Z96.641 Presence of right artificial hip joint
CPT/HCPCS: 73502

== ENCOUNTER → 2017-05-07 | Outpatient (CLI) | payer MEDICARE, BC ==
--- NOTE | 2017-05-07 16:59 | RADRPT ---
PROCEDURE: XR Pelvis and Hips. CLINICAL INDICATION: Pelvic pain. Bilateral hip pain. TECHNIQUE: Five views. Frontal pelvis. Frontal and lateral right hip. Frontal and lateral left hip. COMPARISON: 12/09/2016. FINDINGS: There is no fracture or dislocation. There is a calcified fibroid in the pelvis. There is a right hip total arthroplasty which appears satisfactory. There are moderate degenerative changes of the left hip with joint space narrowing and osteophytes. There is no lytic or blastic lesion. There are degenerative changes of the lower lumbar spine. IMPRESSION: 1. Satisfactory postoperative appearance of the right hip. 2. Moderate degenerative changes of the left hip. 3. Calcified fibroid in the pelvis. 4. Degenerative changes of the lower lumbar spine. 5. No change from 12/09/2016. RPTAT: QQ .Presley Garcia MD, Date Time Electronically viewed and signed by .Presley Garcia MD, MD on 05/07/2017 16:59 .R/
== END | disposition home or self-care (01) ==
LOC: HKI 09:27
PROVIDERS: ATTEND Orthopaedic Surgery
DX: M25.552 Pain in left hip (principal); M16.12 Unilateral primary osteoarthritis, left hip; Z96.641 Presence of right artificial hip joint
CPT/HCPCS: 73523; G0463